=== PATIENT | female | born 2000 | race Caucasian/White ===

== ENCOUNTER 2023-07-07 14:12 | Inpatient (IN) | payer MEDICAID ==
[~2023-07-07] VITALS: Ht 170.2 cm; Wt 103.4 kg
[2023-07-07 17:19] VITALS: O2SAT 94
[2023-07-07 17:39] LABS: BASOPHILS # (AUTO) 0.1 X10'3 (0-0.2); BASOPHILS % (AUTO) 0.6 % (0-1); EOSINOPHILS # (AUTO) 0.1 X10'3 (0-0.9); EOSINOPHILS % (AUTO) 1.4 % (0-6); HEMOGLOBIN 13.7 g/dl (12.0-16.0); LYMPHOCYTES # (AUTO) 2.8 X10'3 (1.1-4.8); LYMPHOCYTES % (AUTO) 27.3 % (21-51); MEAN CORPUSCULAR HEMOGLOBIN 30.2 PG (27.0-31.0); MEAN CORPUSCULAR HGB CONC 33.5 g/dL (33.0-36.5); MEAN CORPUSCULAR VOLUME 90.2 FL (78-98); MONOCYTES # (AUTO) 0.2 X10'3 (0-0.9); MONOCYTES % (AUTO) 2.3 % (2-12); NEUTROPHILS # (AUTO) 6.9 X10'3 (1.8-7.7); NEUTROPHILS % (AUTO) 68.4 % (42-75); PLATELET COUNT 295 X10'3 (140-440); RED BLOOD COUNT 4.55 X10'6 (4.20-5.60); RED CELL DISTRIBUTION WIDTH 15.7 % (11.5-14.5); WHITE BLOOD COUNT 10.1 X10'3 (4.5-11.0)
[2023-07-07 17:45] LABS: ACETONE NEGATIVE (NEGATIVE)
[2023-07-07 18:01] LABS: ALBUMIN 4.1 G/DL (3.4-5.0); ANION GAP 11 (8-16); BLOOD UREA NITROGEN 12 MG/DL (7-18); BUN/CREATININE RATIO 16.4 (10.0-20.0); CALCIUM 9.4 MG/DL (8.5-10.1); CHLORIDE 103 MMOL/L (99-107); CREATININE 0.73 MG/DL (0.40-0.90); ETHANOL < 10 MG/DL (<10); GLUCOSE 94 MG/DL (70-104); POTASSIUM 4.2 MMOL/L (3.5-5.1); SALICYLATE 2.8 MG/DL (4.0-20.0); SODIUM 140 MMOL/L (135-145); TOTAL CARBON DIOXIDE 25.9 MMOL/L (24-32); eCRCL 116 ML/MIN; eGFR > 90 ML/MIN
[2023-07-07 18:03] LABS: BETA HCG,QUANTITATIVE < 1.0 mIU/ml
[2023-07-07 18:04] LABS: ACETAMINOPHEN < 2.0 UG/ML (10-30)
[2023-07-07 18:30] LABS: BILIRUBIN,URINE NEGATIVE (Neg); CLARITY,URINE CLEAR (Clear); COLOR,URINE STRAW (Yellow); GLUCOSE, URINE NEGATIVE (Neg); KETONES,URINE NEGATIVE (Neg); LEUKOCYTE ESTERASE ,URINE NEGATIVE (Neg); NITRITES, URINE NEGATIVE (Neg); OCCULT BLOOD,URINE NEGATIVE (Neg); PROTEIN,URINE NEGATIVE (Neg); UROBILINOGEN,URINE 0.2 E.U/dL (0.2-1.0)
[2023-07-07 18:39] LABS: URINE AMPHETAMINE SCREEN NEGATIVE (Neg); URINE BARBITUATE SCREEN NEGATIVE (Neg); URINE BENZODIAZEPINES SCREEN NEGATIVE (Neg); URINE CANNABINOID SCREEN NEGATIVE (Neg); URINE COCAINE SCREEN NEGATIVE (Neg); URINE METHADONE SCREEN NEGATIVE (Neg); URINE OPIATE SCREEN NEGATIVE (Neg); URINE PHENCYCLIDINE SCREEN NEGATIVE (Neg)
[2023-07-07 18:41] LABS: UA COLLECTION TYPE CLN CATCH MIDSTREAM
[2023-07-07] MEDS: cyanocobalamin 1,000 mcg/ml inj IM ONE (19:35)
[2023-07-07] MEDS ORDERED: mag hydrox/Alum hydrox/simeth 30ml oral suspension PO PRN (22:35)
[2023-07-07] MEDS: normal saline 1000ml 1,000 ML IV SCH (22:35)
[2023-07-07] MEDS ORDERED: magnesium 2GM in 50ml NS 50 ML IV PRN (22:35)
[2023-07-07] MEDS ORDERED: ondansetron/PF 4mg/2ml inj IV PRN (22:35)
[2023-07-07] MEDS ORDERED: potassium Cl 40MEQ/1/2NS 520ml 520 ML IV PRN (22:35)
[2023-07-07] MEDS ORDERED: potassium Cl 20 mEq SR tablet PO PRN ×2 (22:35)
[2023-07-07] MEDS ORDERED: magnesium Cl slow-release 64mg tablet PO PRN (22:35)
[2023-07-07] MEDS ORDERED: magnesium 4gm in 100ml NS 100 ML IV PRN (22:35)
[2023-07-07] MEDS ORDERED: acetaminophen 325mg tablet PO PRN (22:35)
[2023-07-07] MEDS ORDERED: magnesium hydroxide 30ml (MOM) UD suspension PO PRN (22:35)
[2023-07-07 23:20] LABS: HEMOGLOBIN A1C 5.9 % (4.5-6.2)
[2023-07-07] MEDS: pantoprazole 40 MG vial IV ONE (23:46)
[2023-07-07] MEDS: diazepam 5mg tablet PO ONE (23:46)
[2023-07-08 00:31] VITALS: BP 123/77; PULSE 93; RESP 18
[2023-07-08 03:16] LABS: BASOPHILS # (AUTO) 0.1 X10'3 (0-0.2); BASOPHILS % (AUTO) 0.6 % (0-1); EOSINOPHILS # (AUTO) 0.2 X10'3 (0-0.9); EOSINOPHILS % (AUTO) 1.7 % (0-6); HEMATOCRIT 36.5 % (35.0-45.0); HEMOGLOBIN 12.4 g/dl (12.0-16.0); LYMPHOCYTES # (AUTO) 4.4 X10'3 (1.1-4.8); LYMPHOCYTES % (AUTO) 36.6 % (21-51); MEAN CORPUSCULAR HEMOGLOBIN 30.4 PG (27.0-31.0); MEAN CORPUSCULAR HGB CONC 33.9 g/dL (33.0-36.5); MEAN CORPUSCULAR VOLUME 89.7 FL (78-98); MONOCYTES # (AUTO) 0.6 X10'3 (0-0.9); NEUTROPHILS # (AUTO) 6.8 X10'3 (1.8-7.7); NEUTROPHILS % (AUTO) 56.1 % (42-75); PLATELET COUNT 257 X10'3 (140-440); RED BLOOD COUNT 4.07 X10'6 (4.20-5.60); RED CELL DISTRIBUTION WIDTH 15.9 % (11.5-14.5)
[2023-07-08 03:33] LABS: ALANINE AMINOTRANSFERASE 20 U/L (12-78); ALBUMIN 3.4 G/DL (3.4-5.0); ALKALINE PHOSPHATASE 43 IU/L (46-116); ANION GAP 11 (8-16); ASPARTATE AMINO TRANSFERASE 10 U/L (10-37); BILIRUBIN,TOTAL 0.2 MG/DL (0.1-1.0); BLOOD UREA NITROGEN 11 MG/DL (7-18); BUN/CREATININE RATIO 13.8 (10.0-20.0); CALCIUM 8.5 MG/DL (8.5-10.1); CHLORIDE 105 MMOL/L (99-107); CHOL/HDL RATIO 3.8 (0.00-4.99); CHOLESTEROL 168 MG/DL (0-200); GLUCOSE 128 MG/DL (70-104); HDL CHOLESTEROL 44 MG/DL (35-60); LDL CHOLESTEROL 99 MG/DL (50-100); MAGNESIUM 1.7 MG/DL (1.5-2.4); PHOSPHORUS 4.2 MG/DL (2.3-4.5); POTASSIUM 3.5 MMOL/L (3.5-5.1); SODIUM 141 MMOL/L (135-145); TOTAL CARBON DIOXIDE 25.4 MMOL/L (24-32); TOTAL PROTEIN 6.7 G/DL (6.4-8.2); TRIGLYCERIDES 129 MG/DL (20-135); eCRCL 105 ML/MIN; eGFR 88 ML/MIN
[2023-07-08 05:31] VITALS: TEMP 97.7
[2023-07-08] MEDS ORDERED: docusate sod 100mg capsule PO SCH (08:00)
[2023-07-08] MEDS ORDERED: K and/or MAG REPLACEMENT MC SCH (08:00)
[2023-07-08] MEDS ORDERED: LORA-269 PO (15:05)
[2023-07-09] MEDS ORDERED: CLEM2.68 PO (17:40)
[2023-07-10 09:13] LABS: FOLATE SERUM(FOLIC) >20.0 ng/mL (>3.0)
== END 2023-07-08 05:39 | disposition left against medical advice (07) | DRG 48 ==
LOC: ER 14:13 → OBSVTOIN 22:46 → ED HOLD 22:46 → INTOOBSV 22:46
PROVIDERS: ADMIT Internal Medicine Pulmonary Disease; ATTEND Internal Medicine Pulmonary Disease
DX: G62.2 Polyneuropathy due to other toxic agents (principal); G37.9 Demyelinating disease of central nervous system, unspecified; T41.0X5A Adverse effect of inhaled anesthetics, initial encounter; F12.90 Cannabis use, unspecified, uncomplicated; F41.9 Anxiety disorder, unspecified; Z53.29 Procedure and treatment not carried out because of patient's decision for other reasons; Y92.89 Other specified places as the place of occurrence of the external cause; F17.200 Nicotine dependence, unspecified, uncomplicated
CPT/HCPCS: 36415; 70551; 71045; 72141; 72146; 72148; 80048; 80053; 80061; 80305; 80320; 80329; 81003; 82009; 82607; 82746; 83036; 83735; 84100; 84702; 85025; 93005; 96372; 99291; C9113; G0378; J3420; J7030

== ENCOUNTER 2023-07-08 13:52 | Emergency (ER) | payer MEDICAID ==
[~2023-07-08] VITALS: Ht 170.2 cm; Wt 102.8 kg
[2023-07-08 14:02] VITALS: BP 129/81; PULSE 102; RESP 18; TEMP 98; O2SAT 98
[2023-07-08] MEDS: cyanocobalamin 1,000 mcg/ml inj IM ONE (14:54)
[2023-07-08] MEDS: LORazepam 1 MG tablet PO ONE (14:54)
[2023-07-08] MEDS ORDERED: LORA-269 PO (15:05)
[2023-07-09] MEDS ORDERED: CLEM2.68 PO (17:40)
== END 2023-07-08 15:05 | disposition home or self-care (01) ==
LOC: ER 13:53
DX: R20.2 Paresthesia of skin (principal); T41.0X5A Adverse effect of inhaled anesthetics, initial encounter; Y92.89 Other specified places as the place of occurrence of the external cause
CPT/HCPCS: 96372; 99283; J3420

== ENCOUNTER 2023-07-09 17:03 | Emergency (ER) | payer MEDICAID ==
[~2023-07-09] VITALS: Ht 170.2 cm; Wt 102.7 kg
[~2023-07-09 17:03] MED LIST: LORA-269 PO
[2023-07-09 17:18] VITALS: BP 132/84; PULSE 98; RESP 16; TEMP 97.8; O2SAT 98
[2023-07-09] MEDS ORDERED: CLEM2.68 PO (17:40)
[2023-07-09] MEDS: cyanocobalamin 1,000 mcg/ml inj IM ONE (18:34)
== END 2023-07-09 18:57 | disposition home or self-care (01) ==
LOC: ER 17:04
DX: R20.2 Paresthesia of skin (principal); G37.9 Demyelinating disease of central nervous system, unspecified; T78.8XXA Other adverse effects, not elsewhere classified, initial encounter; Z79.899 Other long term (current) drug therapy; X58.XXXA Exposure to other specified factors, initial encounter
CPT/HCPCS: 96372; 99283; J3420

== ENCOUNTER 2023-07-10 16:32 | Emergency (ER) | payer MEDICAID ==
[~2023-07-10] VITALS: Ht 167.6 cm; Wt 101.5 kg
[~2023-07-10 16:32] MED LIST changes: +CLEM2.68 PO
[2023-07-10 16:48] VITALS: BP 129/83; PULSE 103; RESP 18; TEMP 98; O2SAT 97
[2023-07-10] MEDS: cyanocobalamin 1,000 mcg/ml inj IM ONE (17:49)
== END 2023-07-10 17:56 | disposition home or self-care (01) ==
LOC: ER 16:33
DX: R20.2 Paresthesia of skin (principal); T50.995A Adverse effect of other drugs, medicaments and biological substances, initial encounter; Z79.899 Other long term (current) drug therapy; Y92.89 Other specified places as the place of occurrence of the external cause
CPT/HCPCS: 96372; 99283; J3420

== ENCOUNTER 2023-07-11 16:56 | Emergency (ER) | payer MEDICAID ==
[~2023-07-11] VITALS: Ht 170.2 cm; Wt 100.3 kg
[2023-07-11 17:35] VITALS: BP 123/84; PULSE 99; RESP 18; TEMP 97.5; O2SAT 96
[2023-07-11] MEDS: cyanocobalamin 1,000 mcg/ml inj IM ONE (18:01)
== END 2023-07-11 18:18 | disposition home or self-care (01) ==
LOC: ER 16:56
DX: R20.2 Paresthesia of skin (principal); T41.0X5A Adverse effect of inhaled anesthetics, initial encounter; Z79.899 Other long term (current) drug therapy; Y92.89 Other specified places as the place of occurrence of the external cause
CPT/HCPCS: 96372; 99283; J3420